=== PATIENT | male | born 1935 | race Caucasian/White ===

== ENCOUNTER 2017-09-26 05:30 | Inpatient (IN) | payer OTHER ==
[~2017-09-26] VITALS: Ht 177.8 cm; Wt 59.0 kg
[~2017-09-26 05:30] MED LIST: LIP40 PO; METO25TA3 PO; REM15 PO; SYN50 PO; TICA90TA PO
[2017-09-26] MEDS ORDERED: ALVIMOPAN 12 MG CAPSULE PO ONE ×2 (05:52→07:00)
[2017-09-26] MEDS ORDERED: CEFOXITIN 1 GM IV ONE (05:52)
[2017-09-26] MEDS ORDERED: cefOXitin SODIUM 2 GM in D5W 100 ML IV ONE (07:00)
[2017-09-26] MEDS ORDERED: LR 1,000 ML IV.SOLN IV ONE (07:15)
[2017-09-26] MEDS ORDERED: fentaNYL CITRATE 250 MCG/5 ML AMP IV ONE (07:15)
[2017-09-26] MEDS ORDERED: GLYCOPYRROLATE 0.2 MG/ML VIAL IJ ONE (07:15)
[2017-09-26] MEDS ORDERED: NS 1000 ML IV.SOLN IV ONE (07:15)
[2017-09-26] MEDS ORDERED: MIDAZOLAM HCL 5 MG/5 ML VIAL IVP ONE (07:15)
[2017-09-26] MEDS ORDERED: BUPIVACAINE LIPOSOME/PF 266 MG/20 ML VIAL INFIL ONE (07:15)
[2017-09-26] MEDS ORDERED: ONDANSETRON HCL 4 MG/2 ML VIAL IVP ONE (07:15)
[2017-09-26] MEDS ORDERED: KETOROLAC TROMETHAMINE 30 MG VIAL IVP ONE (07:15)
[2017-09-26] MEDS ORDERED: cefOXitin SODIUM 2 GM/VIAL (MEFOXIN) IV ONE (07:15)
[2017-09-26] MEDS ORDERED: SEVOFLURANE 15 MIN GAS INH ONE (07:15)
[2017-09-26] MEDS ORDERED: NEOSTIGMINE METHYLSULFATE 1 MG/ML, 10 ML VIAL IVP ONE (07:15)
[2017-09-26] MEDS ORDERED: ePHEDrine sulfate 50 MG/ML VIAL IVP ONE (07:15)
[2017-09-26] MEDS ORDERED: NS IRRIG SOLN 1000 ML IR ONE (07:15)
[2017-09-26] MEDS ORDERED: DEXAMETHASONE SOD PHOSPHATE 4 MG/ML VIAL IVP ONE (07:15)
[2017-09-26] MEDS ORDERED: PROPOFOL 200MG/ 20ML VIAL (DIPRIVAN) IV ONE (07:15)
[2017-09-26] MEDS ORDERED: fentaNYL CITRATE/PF 100 MCG/2 ML AMP IVP ONE (07:15)
[2017-09-26] MEDS ORDERED: ROCURONIUM BROMIDE 10 MG/ML (ZEMURON) IV ONE (07:15)
[2017-09-26] MEDS ORDERED: NS 100 ML BAG IV ONE (07:15)
[2017-09-26] MEDS ORDERED: LR 1,000 ML IV SCH (09:34)
[2017-09-26] MEDS ORDERED: MEPERIDINE HCL/PF 25 MG/ML DISP.SYRIN IVP PRN (09:45)
[2017-09-26] MEDS ORDERED: HYDROmorphone 1 MG INJ. 1 MG/ML AMPUL IVP PRN ×2 (09:45→11:00)
[2017-09-26] MEDS ORDERED: HYDROmorphone 2 MG/ML VIAL IVP PRN ×2 (09:45)
[2017-09-26] MEDS: D5/0.45 NS 1,000 ML IV SCH ×2 (10:50→21:17)
[2017-09-26] MEDS ORDERED: ACETAMINOPHEN 325 MG TABLET PO PRN (11:00)
[2017-09-26] MEDS ORDERED: ONDANSETRON HCL 4 MG/2 ML VIAL IVP PRN (11:00)
[2017-09-26] MEDS ORDERED: metroNIDAZOLE 500 mg/NS 100 ML IV SCH (11:00)
[2017-09-26 11:23] LABS: ANION GAP 7 (5-15); CALCIUM 7.6 mg/dL (8.4-11.0); CHLORIDE 107 mmol/L (98-107); GLUCOSE 147 mg/dL (70-99); POTASSIUM 4.5 mmol/L (3.5-5.1); SODIUM SERUM 137 mmol/L (136-145); UREA NITROGEN, BLOOD 16 mg/dL (8-21)
[2017-09-26 11:30] LABS: HEMATOCRIT 29.1 % (36-54); HEMOGLOBIN 9.6 g/dL (14.0-18.0)
[2017-09-26 12:00] VITALS: BP_SYST 123
[2017-09-26 12:36] VITALS: BP_SYST 124
[2017-09-26 15:36] VITALS: BP_SYST 125
[2017-09-26 20:00] VITALS: BP_SYST 115
[2017-09-26] MEDS: ALVIMOPAN 12 MG CAPSULE PO SCH (21:13)
[2017-09-26] MEDS: FAMOTIDINE PF 20 MG/2 ML VIAL IVP SCH (21:13)
[2017-09-26] MEDS: cefOXitin SODIUM 2 GM in D5W 100 ML IV SCH (21:13)
[2017-09-27 00:23] VITALS: BP_SYST 103
[2017-09-27] MEDS: HYDROcodone/ACETAMIN 5-325 MG TAB (NORCO/ VICODIN) PO PRN ×3 (03:33→17:02)
[2017-09-27] MEDS: D5/0.45 NS 1,000 ML IV SCH ×2 (04:50→17:02)
[2017-09-27 06:51] LABS: BASOPHILS % (AUTO) 0.2 % (0.0-2.0); EOSINOPHILS # (AUTO) 0.1 K/uL (0.0-0.4); EOSINOPHILS % (AUTO) 0.4 % (0.0-4.0); HEMATOCRIT 28.3 % (36-54); HEMOGLOBIN 9.4 g/dL (14.0-18.0); LYMPHOCYTES # (AUTO) 1.6 K/uL (1.0-5.5); LYMPHOCYTES % (AUTO) 12.1 % (20.5-51.5); MEAN CORPUSCULAR HEMOGLOBIN 30 pg (27-31); MEAN CORPUSCULAR HGB CONC 33 % (32-36); MEAN CORPUSCULAR VOLUME 89 fL (79.0-98.0); MONOCYTES # (AUTO) 0.6 K/uL (0.0-1.0); MONOCYTES % (AUTO) 4.5 % (1.7-9.3); NEUTROPHILS # (AUTO) 10.6 K/uL (1.8-7.7); NEUTROPHILS % (AUTO) 82.8 % (40.0-70.0); PLATELET COUNT (AUTO) 302 K/uL (130-430); RED BLOOD CELL COUNT(AUTO) 3.18 MIL/uL (4.2-6.2); RED CELL DISTRIBUTION WIDTH 15.1 % (9.0-15.0); WHITE BLOOD COUNT (AUTO) 12.9 K/uL (4.8-10.8)
[2017-09-27 06:55] LABS: ALANINE AMINOTRANSFERASE 16 U/L (12-78); ALBUMIN 1.6 g/dL (3.4-4.8); ANION GAP 7 (5-15); ASPARTATE AMINOTRANSFERASE 19 U/L (10-37); CALCIUM 7.7 mg/dL (8.4-11.0); CHLORIDE 104 mmol/L (98-107); CREATININE 1.35 mg/dL (0.55-1.30); GLUCOSE 144 mg/dL (70-99); POTASSIUM 4.3 mmol/L (3.5-5.1); SODIUM SERUM 134 mmol/L (136-145); TOTAL BILIRUBIN 0.4 mg/dL (0.0-1.0); UREA NITROGEN, BLOOD 16 mg/dL (8-21)
[2017-09-27] MEDS: cefOXitin SODIUM 2 GM in D5W 100 ML IV SCH ×3 (08:37→20:27)
[2017-09-27] MEDS: ALVIMOPAN 12 MG CAPSULE PO SCH ×2 (08:38→20:28)
[2017-09-27] MEDS: FAMOTIDINE PF 20 MG/2 ML VIAL IVP SCH ×2 (08:38→20:28)
[2017-09-27 08:50] VITALS: BP_SYST 120
[2017-09-27] MEDS ORDERED: ENOXAPARIN SODIUM 30 MG/0.3 ML SYRINGE SUBCUT SCH (09:00)
[2017-09-27 11:17] VITALS: BP_SYST 107
[2017-09-27 15:03] VITALS: BP_SYST 129
[2017-09-27] MEDS: METOCLOPRAMIDE HCL 10 MG/2 ML VIAL IVP SCH (17:03)
[2017-09-27 19:45] VITALS: BP_SYST 110
[2017-09-27] MEDS: ATORVASTATIN 20 MG TABLET PO SCH (20:28)
[2017-09-28] MEDS: METOCLOPRAMIDE HCL 10 MG/2 ML VIAL IVP SCH ×5 (00:17→23:25)
[2017-09-28 00:32] VITALS: BP_SYST 110
[2017-09-28] MEDS: HYDROcodone/ACETAMIN 5-325 MG TAB (NORCO/ VICODIN) PO PRN ×3 (01:21→16:28)
[2017-09-28] MEDS: D5/0.45 NS 1,000 ML IV SCH ×2 (02:50→12:25)
[2017-09-28] MEDS: LEVOTHYROXINE SODIUM 0.05 MG TABLET PO SCH (06:16)
[2017-09-28 08:00] VITALS: BP_SYST 107
[2017-09-28] MEDS: cefOXitin SODIUM 2 GM in D5W 100 ML IV SCH ×2 (08:33→21:43)
[2017-09-28] MEDS: FAMOTIDINE PF 20 MG/2 ML VIAL IVP SCH ×2 (08:33→21:42)
[2017-09-28] MEDS: ALVIMOPAN 12 MG CAPSULE PO SCH ×2 (08:34→21:42)
[2017-09-28] MEDS: METOPROLOL SUCCINATE 25 MG TAB.SR.24H (TOPROL XL) PO SCH ×2 (08:34→21:00)
[2017-09-28] MEDS: MIRTAZAPINE 15 MG TABLET PO SCH (08:34)
[2017-09-28] MEDS: BRILINTA 90 MG PO SCH ×2 (08:43→21:00)
[2017-09-28 12:10] VITALS: BP_SYST 135
[2017-09-28 16:15] VITALS: BP_SYST 130
[2017-09-28 20:06] VITALS: BP_SYST 126
[2017-09-28 20:12] VITALS: BP_SYST 126
[2017-09-28] MEDS: ATORVASTATIN 20 MG TABLET PO SCH (21:42)
[2017-09-29] VITALS (7 sets, daily range): BP systolic 122–144
[2017-09-29] MEDS: METOCLOPRAMIDE HCL 10 MG/2 ML VIAL IVP SCH ×4 (05:59→23:34)
[2017-09-29] MEDS: LEVOTHYROXINE SODIUM 0.05 MG TABLET PO SCH (05:59)
[2017-09-29] MEDS: HYDROcodone/ACETAMIN 5-325 MG TAB (NORCO/ VICODIN) PO PRN ×3 (05:59→22:09)
[2017-09-29] MEDS: D5/0.45 NS 1,000 ML IV SCH (06:02)
[2017-09-29 06:07] LABS: ALANINE AMINOTRANSFERASE 20 U/L (12-78); ALBUMIN 1.5 g/dL (3.4-4.8); ANION GAP 7 (5-15); ASPARTATE AMINOTRANSFERASE 25 U/L (10-37); CALCIUM 7.6 mg/dL (8.4-11.0); CHLORIDE 102 mmol/L (98-107); CREATININE 1.06 mg/dL (0.55-1.30); GLUCOSE 122 mg/dL (70-99); POTASSIUM 3.4 mmol/L (3.5-5.1); SODIUM SERUM 131 mmol/L (136-145); TOTAL BILIRUBIN 0.4 mg/dL (0.0-1.0); UREA NITROGEN, BLOOD 5 mg/dL (8-21)
[2017-09-29 06:09] LABS: BASOPHILS % (AUTO) 0.2 % (0.0-2.0); EOSINOPHILS # (AUTO) 0.2 K/uL (0.0-0.4); EOSINOPHILS % (AUTO) 1.7 % (0.0-4.0); HEMATOCRIT 27.9 % (36-54); HEMOGLOBIN 9.4 g/dL (14.0-18.0); LYMPHOCYTES # (AUTO) 1.3 K/uL (1.0-5.5); LYMPHOCYTES % (AUTO) 9.3 % (20.5-51.5); MEAN CORPUSCULAR HEMOGLOBIN 30 pg (27-31); MEAN CORPUSCULAR HGB CONC 34 % (32-36); MEAN CORPUSCULAR VOLUME 88 fL (79.0-98.0); MONOCYTES # (AUTO) 0.6 K/uL (0.0-1.0); MONOCYTES % (AUTO) 4.4 % (1.7-9.3); NEUTROPHILS # (AUTO) 12.1 K/uL (1.8-7.7); NEUTROPHILS % (AUTO) 84.4 % (40.0-70.0); PLATELET COUNT (AUTO) 303 K/uL (130-430); RED BLOOD CELL COUNT(AUTO) 3.16 MIL/uL (4.2-6.2); RED CELL DISTRIBUTION WIDTH 15.3 % (9.0-15.0); WHITE BLOOD COUNT (AUTO) 14.2 K/uL (4.8-10.8)
[2017-09-29] MEDS: KCL 30mEq in D5/0.45NS 1000 mL 1,000 ML IV SCH ×2 (08:29→17:51)
[2017-09-29] MEDS: ALVIMOPAN 12 MG CAPSULE PO SCH ×2 (08:30→21:44)
[2017-09-29] MEDS: FAMOTIDINE PF 20 MG/2 ML VIAL IVP SCH ×2 (08:30→21:45)
[2017-09-29] MEDS: cefOXitin SODIUM 2 GM in D5W 100 ML IV SCH ×2 (08:30→21:43)
[2017-09-29] MEDS: PARoxetine HCL 20 MG TABLET PO SCH (08:31)
[2017-09-29] MEDS: METOPROLOL SUCCINATE 25 MG TAB.SR.24H (TOPROL XL) PO SCH ×2 (08:31→21:44)
[2017-09-29] MEDS: MIRTAZAPINE 15 MG TABLET PO SCH (08:31)
[2017-09-29] MEDS: BRILINTA 90 MG PO SCH ×2 (08:44→21:00)
[2017-09-29] MEDS: ATORVASTATIN 20 MG TABLET PO SCH (21:44)
[2017-09-30] MEDS: KCL 30mEq in D5/0.45NS 1000 mL 1,000 ML IV SCH ×2 (06:01→15:45)
[2017-09-30] MEDS: METOCLOPRAMIDE HCL 10 MG/2 ML VIAL IVP SCH ×3 (06:01→17:46)
[2017-09-30] MEDS: LEVOTHYROXINE SODIUM 0.05 MG TABLET PO SCH (06:01)
[2017-09-30 07:04] LABS: ANION GAP 4 (5-15); CALCIUM 7.8 mg/dL (8.4-11.0); CHLORIDE 104 mmol/L (98-107); GLUCOSE 125 mg/dL (70-99); POTASSIUM 3.8 mmol/L (3.5-5.1); SODIUM SERUM 133 mmol/L (136-145); UREA NITROGEN, BLOOD 4 mg/dL (8-21)
[2017-09-30 07:17] LABS: ALANINE AMINOTRANSFERASE 21 U/L (12-78); ALBUMIN 1.3 g/dL (3.4-4.8); ASPARTATE AMINOTRANSFERASE 28 U/L (10-37); TOTAL BILIRUBIN 0.3 mg/dL (0.0-1.0)
[2017-09-30 08:00] VITALS: BP_SYST 136
[2017-09-30] MEDS: BRILINTA 90 MG PO SCH ×2 (09:00→21:00)
[2017-09-30] MEDS: cefOXitin SODIUM 2 GM in D5W 100 ML IV SCH ×2 (09:15→21:36)
[2017-09-30] MEDS: ALVIMOPAN 12 MG CAPSULE PO SCH ×2 (09:16→21:35)
[2017-09-30] MEDS: METOPROLOL SUCCINATE 25 MG TAB.SR.24H (TOPROL XL) PO SCH ×2 (09:16→21:36)
[2017-09-30] MEDS: PARoxetine HCL 20 MG TABLET PO SCH (09:16)
[2017-09-30] MEDS: MIRTAZAPINE 15 MG TABLET PO SCH (09:16)
[2017-09-30] MEDS: FAMOTIDINE PF 20 MG/2 ML VIAL IVP SCH ×2 (09:17→21:36)
[2017-09-30 12:00] VITALS: BP_SYST 132
[2017-09-30 16:00] VITALS: BP_SYST 158
[2017-09-30 18:28] LABS: WHITE BLOOD COUNT (AUTO) 12.4 K/uL (4.8-10.8)
[2017-09-30 18:29] LABS: HEMATOCRIT 27.1 % (36-54); HEMOGLOBIN 9.4 g/dL (14.0-18.0); MEAN CORPUSCULAR HEMOGLOBIN 30 pg (27-31); MEAN CORPUSCULAR HGB CONC 35 % (32-36); MEAN CORPUSCULAR VOLUME 86 fL (79.0-98.0); NEUTROPHILS % (AUTO) 81.3 % (40.0-70.0); PLATELET COUNT (AUTO) 307 K/uL (130-430); RED BLOOD CELL COUNT(AUTO) 3.17 MIL/uL (4.2-6.2); RED CELL DISTRIBUTION WIDTH 15.6 % (9.0-15.0)
[2017-09-30 18:30] LABS: BASOPHILS % (AUTO) 0.3 % (0.0-2.0); EOSINOPHILS # (AUTO) 0.5 K/uL (0.0-0.4); EOSINOPHILS % (AUTO) 4.2 % (0.0-4.0); LYMPHOCYTES % (AUTO) 7.9 % (20.5-51.5); MONOCYTES # (AUTO) 0.8 K/uL (0.0-1.0); MONOCYTES % (AUTO) 6.3 % (1.7-9.3); NEUTROPHILS # (AUTO) 10.1 K/uL (1.8-7.7)
[2017-09-30] MEDS ORDERED: DEXTROSE 50% JECT 50 ML DISP.SYRIN IVP PRN (19:45)
[2017-09-30] MEDS ORDERED: *TPN PER PHARMACY XX PRN (19:45)
[2017-09-30 20:00] VITALS: BP_SYST 149
[2017-09-30 20:23] LABS: PROTHROMBIN TIME 10.2 SECS (9.5-12.5)
[2017-09-30] MEDS: ATORVASTATIN 20 MG TABLET PO SCH (21:35)
[2017-09-30 23:28] VITALS: BP_SYST 143
[2017-10-01] MEDS: METOCLOPRAMIDE HCL 10 MG/2 ML VIAL IVP SCH ×4 (00:05→17:16)
[2017-10-01] MEDS: KCL 30mEq in D5/0.45NS 1000 mL 1,000 ML IV SCH ×3 (00:05→21:11)
[2017-10-01] MEDS: LEVOTHYROXINE SODIUM 0.05 MG TABLET PO SCH (06:11)
[2017-10-01 06:45] LABS: BASOPHILS % (AUTO) 0.2 % (0.0-2.0); EOSINOPHILS # (AUTO) 0.7 K/uL (0.0-0.4); EOSINOPHILS % (AUTO) 4.7 % (0.0-4.0); HEMATOCRIT 28.2 % (36-54); HEMOGLOBIN 9.4 g/dL (14.0-18.0); LYMPHOCYTES # (AUTO) 1.2 K/uL (1.0-5.5); LYMPHOCYTES % (AUTO) 8.2 % (20.5-51.5); MEAN CORPUSCULAR HEMOGLOBIN 30 pg (27-31); MEAN CORPUSCULAR HGB CONC 33 % (32-36); MEAN CORPUSCULAR VOLUME 89 fL (79.0-98.0); MONOCYTES # (AUTO) 1.1 K/uL (0.0-1.0); MONOCYTES % (AUTO) 7.7 % (1.7-9.3); NEUTROPHILS # (AUTO) 11.3 K/uL (1.8-7.7); NEUTROPHILS % (AUTO) 79.2 % (40.0-70.0); PLATELET COUNT (AUTO) 326 K/uL (130-430); RED BLOOD CELL COUNT(AUTO) 3.17 MIL/uL (4.2-6.2); RED CELL DISTRIBUTION WIDTH 15.4 % (9.0-15.0); WHITE BLOOD COUNT (AUTO) 14.3 K/uL (4.8-10.8)
[2017-10-01 06:48] LABS: ALANINE AMINOTRANSFERASE 51 U/L (12-78); ALBUMIN 1.3 g/dL (3.4-4.8); ANION GAP 5 (5-15); ASPARTATE AMINOTRANSFERASE 63 U/L (10-37); CALCIUM 7.8 mg/dL (8.4-11.0); CHLORIDE 100 mmol/L (98-107); CREATININE 0.89 mg/dL (0.55-1.30); GLUCOSE 134 mg/dL (70-99); POTASSIUM 4.4 mmol/L (3.5-5.1); SODIUM SERUM 129 mmol/L (136-145); TOTAL BILIRUBIN 0.4 mg/dL (0.0-1.0); UREA NITROGEN, BLOOD 4 mg/dL (8-21)
[2017-10-01 08:00] VITALS: BP_SYST 152
[2017-10-01 08:11] LABS: PHOSPHORUS 2.5 mg/dL (2.7-4.5)
[2017-10-01] MEDS: BRILINTA 90 MG PO SCH ×2 (09:00→21:00)
[2017-10-01] MEDS: ALVIMOPAN 12 MG CAPSULE PO SCH ×2 (09:27→21:12)
[2017-10-01] MEDS: PARoxetine HCL 20 MG TABLET PO SCH (09:27)
[2017-10-01] MEDS: MIRTAZAPINE 15 MG TABLET PO SCH (09:27)
[2017-10-01] MEDS: FAMOTIDINE PF 20 MG/2 ML VIAL IVP SCH ×2 (09:27→21:12)
[2017-10-01] MEDS: METOPROLOL SUCCINATE 25 MG TAB.SR.24H (TOPROL XL) PO SCH ×2 (09:28→21:13)
[2017-10-01] MEDS ORDERED: ACET325T53 PO (09:38)
[2017-10-01] MEDS ORDERED: PEPI20 IVP (09:38)
[2017-10-01] MEDS ORDERED: ONDA4VIA53 IVP (09:38)
[2017-10-01] MEDS: cefOXitin SODIUM 2 GM in D5W 100 ML IV SCH ×2 (10:01→21:12)
[2017-10-01 11:25] VITALS: BP_SYST 147
[2017-10-01 15:13] VITALS: BP_SYST 135
[2017-10-01] MEDS: FAT EMULSIONS 250 ML IV SCH (17:21)
[2017-10-01] MEDS ORDERED: [UNRECOGNIZED DRUG - OTHER] IV SCH ×9 (18:00)
[2017-10-01] MEDS ORDERED: TPN PERIPHERAL IV SCH ×9 (18:00)
[2017-10-01] MEDS ORDERED: POTASSIUM CHLORIDE IV SCH ×9 (18:00)
[2017-10-01] MEDS ORDERED: SODIUM ACETATE IV SCH ×9 (18:00)
[2017-10-01 20:00] VITALS: BP_SYST 152
[2017-10-01] MEDS: ATORVASTATIN 20 MG TABLET PO SCH (21:12)
[2017-10-02] MEDS: METOCLOPRAMIDE HCL 10 MG/2 ML VIAL IVP SCH ×4 (00:16→17:04)
[2017-10-02 00:43] VITALS: BP_SYST 142
[2017-10-02] MEDS: KCL 30mEq in D5/0.45NS 1000 mL 1,000 ML IV SCH ×3 (06:00→17:00)
[2017-10-02] MEDS: LEVOTHYROXINE SODIUM 0.05 MG TABLET PO SCH (06:32)
[2017-10-02 08:00] VITALS: BP_SYST 121
[2017-10-02] MEDS: BRILINTA 90 MG PO SCH ×2 (09:00→21:00)
[2017-10-02] MEDS: MIRTAZAPINE 15 MG TABLET PO SCH (09:28)
[2017-10-02] MEDS: PARoxetine HCL 20 MG TABLET PO SCH (09:28)
[2017-10-02] MEDS: METOPROLOL SUCCINATE 25 MG TAB.SR.24H (TOPROL XL) PO SCH ×2 (09:28→21:43)
[2017-10-02] MEDS: FAMOTIDINE PF 20 MG/2 ML VIAL IVP SCH ×2 (09:29→21:43)
[2017-10-02] MEDS: ALVIMOPAN 12 MG CAPSULE PO SCH ×2 (09:29→21:44)
[2017-10-02] MEDS: cefOXitin SODIUM 2 GM in D5W 100 ML IV SCH ×2 (09:29→21:42)
[2017-10-02 11:22] VITALS: BP_SYST 153
[2017-10-02 14:57] VITALS: BP_SYST 153
[2017-10-02 15:19] VITALS: BP_SYST 134
[2017-10-02] MEDS: FAT EMULSIONS 250 ML IV SCH (17:13)
[2017-10-02] MEDS ORDERED: TPN CENTRAL IV SCH ×9 (18:00)
[2017-10-02] MEDS ORDERED: [UNRECOGNIZED DRUG - OTHER] IV SCH ×9 (18:00)
[2017-10-02] MEDS ORDERED: SODIUM ACETATE IV SCH ×9 (18:00)
[2017-10-02] MEDS ORDERED: POTASSIUM CHLORIDE IV SCH ×9 (18:00)
[2017-10-02] MEDS ORDERED: INSULIN REGULAR, HUMAN 100 UNITS/ML, 10 ML VIAL (novoLIN R) SUBCUT PRN (18:15)
[2017-10-02 20:37] VITALS: BP_SYST 131
[2017-10-02] MEDS: ATORVASTATIN 20 MG TABLET PO SCH (21:44)
[2017-10-03 01:00] VITALS: BP_SYST 138
[2017-10-03] MEDS: METOCLOPRAMIDE HCL 10 MG/2 ML VIAL IVP SCH ×3 (06:21→11:28)
[2017-10-03] MEDS: LEVOTHYROXINE SODIUM 0.05 MG TABLET PO SCH (06:21)
[2017-10-03 06:39] LABS: BASOPHILS % (AUTO) 0.2 % (0.0-2.0); EOSINOPHILS # (AUTO) 0.4 K/uL (0.0-0.4); EOSINOPHILS % (AUTO) 4.2 % (0.0-4.0); HEMATOCRIT 27.7 % (36-54); HEMOGLOBIN 8.9 g/dL (14.0-18.0); LYMPHOCYTES # (AUTO) 1.1 K/uL (1.0-5.5); MEAN CORPUSCULAR HEMOGLOBIN 28 pg (27-31); MEAN CORPUSCULAR HGB CONC 32 % (32-36); MEAN CORPUSCULAR VOLUME 88 fL (79.0-98.0); NEUTROPHILS # (AUTO) 8.1 K/uL (1.8-7.7); NEUTROPHILS % (AUTO) 76.6 % (40.0-70.0); PLATELET COUNT (AUTO) 295 K/uL (130-430); RED BLOOD CELL COUNT(AUTO) 3.15 MIL/uL (4.2-6.2); RED CELL DISTRIBUTION WIDTH 14.9 % (9.0-15.0); WHITE BLOOD COUNT (AUTO) 10.6 K/uL (4.8-10.8)
[2017-10-03 07:04] LABS: ALANINE AMINOTRANSFERASE 41 U/L (12-78); ALBUMIN 1.3 g/dL (3.4-4.8); ANION GAP 4 (5-15); ASPARTATE AMINOTRANSFERASE 29 U/L (10-37); CALCIUM 7.8 mg/dL (8.4-11.0); CHLORIDE 98 mmol/L (98-107); CREATININE 0.88 mg/dL (0.55-1.30); GLUCOSE 127 mg/dL (70-99); SODIUM SERUM 129 mmol/L (136-145); TOTAL BILIRUBIN 0.3 mg/dL (0.0-1.0); UREA NITROGEN, BLOOD 5 mg/dL (8-21)
[2017-10-03 07:50] VITALS: BP_SYST 134
[2017-10-03] MEDS: MIRTAZAPINE 15 MG TABLET PO SCH (08:54)
[2017-10-03] MEDS: PARoxetine HCL 20 MG TABLET PO SCH (08:55)
[2017-10-03] MEDS: ALVIMOPAN 12 MG CAPSULE PO SCH (08:55)
[2017-10-03] MEDS: METOPROLOL SUCCINATE 25 MG TAB.SR.24H (TOPROL XL) PO SCH (08:55)
[2017-10-03] MEDS: cefOXitin SODIUM 2 GM in D5W 100 ML IV SCH (08:56)
[2017-10-03] MEDS: BRILINTA 90 MG PO SCH (08:56)
[2017-10-03] MEDS: FAMOTIDINE PF 20 MG/2 ML VIAL IVP SCH (09:02)
[2017-10-03] MEDS ORDERED: risperiDONE 0.25 MG TABLET (RisperDAL) PO ONE (11:15)
[2017-10-03 11:18] VITALS: BP_SYST 138
[2017-10-03] MEDS: KCL 30mEq in D5/0.45NS 1000 mL 1,000 ML IV SCH (12:30)
[2017-10-03 13:08] VITALS: BP_SYST 138
[2017-10-03 15:01] VITALS: BP_SYST 134
[2017-10-03] MEDS ORDERED: NA PHOS IV SCH ×9 (18:00)
[2017-10-03] MEDS ORDERED: [UNRECOGNIZED DRUG - OTHER] IV SCH ×9 (18:00)
[2017-10-03] MEDS ORDERED: TPN CENTRAL IV SCH ×9 (18:00)
[2017-10-03] MEDS ORDERED: SODIUM ACETATE IV SCH ×9 (18:00)
[2017-10-03] MEDS ORDERED: POTASSIUM CHLORIDE IV SCH ×9 (18:00)
[2017-10-03] MEDS ORDERED: risperiDONE 0.25 MG TABLET (RisperDAL) PO SCH (21:00)
== END 2017-10-03 16:20 | DRG 907 ==
LOC: SMU 05:30 → STU 12:06 → SMU 09-28 21:31
PROVIDERS: ADMIT Colon & Rectal Surgery; ATTEND Colon & Rectal Surgery
PROC: 0D1N0Z4 Bypass Sigmoid Colon to Cutaneous, Open Approach (ICD-10-PCS; 2017-09-26)
PROC: 30233N1 Transfusion of Nonautologous Red Blood Cells into Peripheral Vein, Percutaneous Approach (ICD-10-PCS; 2017-09-26)
PROC: 0DB80ZZ Excision of Small Intestine, Open Approach (ICD-10-PCS; 2017-09-26)
PROC: 0WPF0JZ Removal of Synthetic Substitute from Abdominal Wall, Open Approach (ICD-10-PCS; 2017-09-26)
PROC: 0DBN0ZZ Excision of Sigmoid Colon, Open Approach (ICD-10-PCS; principal; 2017-09-26 07:30)
DX: T85.79XA Infection and inflammatory reaction due to other internal prosthetic devices, implants and grafts, initial encounter (principal); K65.1 Peritoneal abscess; K63.1 Perforation of intestine (nontraumatic); T83.718A Erosion of other implanted mesh to organ or tissue, initial encounter; F33.2 Major depressive disorder, recurrent severe without psychotic features; K56.7 Ileus, unspecified; H91.90 Unspecified hearing loss, unspecified ear; R33.9 Retention of urine, unspecified; I10 Essential (primary) hypertension; I25.10 Atherosclerotic heart disease of native coronary artery without angina pectoris; Y83.8 Other surgical procedures as the cause of abnormal reaction of the patient, or of later complication, without mention of misadventure at the time of the procedure; Y92.89 Other specified places as the place of occurrence of the external cause; Z98.61 Coronary angioplasty status
CPT/HCPCS: 36415; 71045; 80048; 80053; 82962; 83735-TC; 84100-TC; 84478-TC; 85018-TC; 85025; 85610-TC; 85730-TC; 86886; 86900; 86901; 86920; 87081; 88307; 94010; 97110-GP; 97116-GP; 97530-GP; A4409; A5061; C1751; C1769; C9290; J0694; J1100; J1170; J1650; J1885; J2250; J2405; J2704; J2710; J2765; J3010; J3475; J3480; J3490; J7030; J7042; J7060; J7120; P9021

== ENCOUNTER 2018-08-27 05:55 | Inpatient (IN) | payer OTHER ==
[~2018-08-27] VITALS: Ht 177.8 cm; Wt 78.9 kg
[~2018-08-27 05:55] MED LIST changes: +ACET325T53 PO; +ONDA4VIA52 IVP; +PEPI20 IVP
[2018-08-27] MEDS ORDERED: ALVIMOPAN 12 MG CAPSULE PO ONE ×2 (06:28→07:00)
[2018-08-27] MEDS ORDERED: METO25TA3 PO (06:54)
[2018-08-27] MEDS ORDERED: cefOXitin SODIUM 2 GM in D5W 100 ML IV ONE (07:00)
[2018-08-27] MEDS ORDERED: ROCURONIUM BROMIDE 10 MG/ML (ZEMURON) IV ONE (07:40)
[2018-08-27] MEDS ORDERED: MIDAZOLAM HCL 5 MG/5 ML VIAL IVP ONE (07:40)
[2018-08-27] MEDS ORDERED: cefOXitin 2 GM IVPB PREMIX 50 ML IV ONE (07:40)
[2018-08-27] MEDS ORDERED: PROPOFOL 200MG/ 20ML VIAL (DIPRIVAN) IV ONE (07:40)
[2018-08-27] MEDS ORDERED: SEVOFLURANE 15 MIN GAS INH ONE (07:40)
[2018-08-27] MEDS ORDERED: ePHEDrine sulfate 50 MG/ML VIAL IVP ONE (07:40)
[2018-08-27] MEDS ORDERED: fentaNYL CITRATE/PF 100 MCG/2 ML AMP IVP ONE (07:40)
[2018-08-27] MEDS ORDERED: WATER FOR IRRIGATION,STERILE 1,000 ML IRRIG.SOLN IR ONE (07:40)
[2018-08-27] MEDS ORDERED: LR 1,000 ML IV.SOLN IV ONE (07:40)
[2018-08-27] MEDS ORDERED: GLYCOPYRROLATE 1 MG/5 ML VIAL IJ ONE (07:40)
[2018-08-27] MEDS ORDERED: LR 500 ML IV ONE (08:24)
[2018-08-27] MEDS ORDERED: FENT2mCg/mL-ROPIVA0.2%/NS EPID 100 ML EP SCH (08:30)
[2018-08-27] MEDS ORDERED: fentaNYL CITRATE/PF 100 MCG/2 ML AMP IVP PRN ×2 (08:30)
[2018-08-27] MEDS ORDERED: HYDROmorphone 1 MG INJ. 1 MG/ML AMPUL IVP PRN (13:30)
[2018-08-27] MEDS ORDERED: ACETAMINOPHEN 325 MG TABLET PO PRN (13:30)
--- NOTE | 2018-08-27 14:17 | NUR ---
ADMISSION NOTE Received patient from ER via dean, received report from Manoj RDIER. Patient admitted with diagnosis of post surgery. Patient oriented to hospital routine, call light, toileting and safety-patient verbalized understanding.
[2018-08-27 14:20] VITALS: BP_SYST 130
--- NOTE | 2018-08-27 14:20 | NUR ---
CONSULTATION PAGED REASON FOR CONSULTATION:MEDICAL MANAGEMENT WAS CONSULT CALLED?Y PERSON WHO WAS NOTIFIED:ANH CONSULTING PHYSICIAN:ANGIE PERRY ELECTROTYPE FINISHER SPECIALTY:INTERNAL MEDICINE ELECTROTYPE FINISHER PHONE NUMBER:[phone] REQUESTING PHYSICIAN:JUMANA JIANG
[2018-08-27] MEDS: D5/0.45 NS 1,000 ML IV SCH (14:26)
--- NOTE | 2018-08-27 14:30 | NUR ---
Incentive Spirometer: Patient educated on incentive spirometer use. Patient verbalize understanding and return demonstrated.
[2018-08-27 14:36] VITALS: BP_SYST 130
[2018-08-27 16:03] LABS: HEMATOCRIT 40.7 % (36-54); HEMOGLOBIN 13.2 g/dL (14.0-18.0)
[2018-08-27 16:11] LABS: ANION GAP 11 (5-15); CALCIUM 8.1 mg/dL (8.4-11.0); CHLORIDE 107 mmol/L (98-107); CREATININE 1.47 mg/dL (0.55-1.30); GLUCOSE 169 mg/dL (70-99); POTASSIUM 5.2 mmol/L (3.5-5.1); SODIUM SERUM 139 mmol/L (136-145); UREA NITROGEN, BLOOD 17 mg/dL (8-21)
--- NOTE | 2018-08-27 16:21 | NUR ---
Rounds: Patient in bed resting. Patient denies pain and discomfort. Breathing is even and unlabored with no distress noted. IVF infusing with no signs of infiltration. Safety precautions in place and call light within reach. Will continue to monitor.
[2018-08-27 17:58] VITALS: BP_SYST 130
[2018-08-27 18:10] VITALS: BP_SYST 99
--- NOTE | 2018-08-27 18:49 | NUR ---
Closing Note: Patient in bed resting. Patient denies pain and discomfort. Breathing is even and unlabored on room air, O2 sat 97%. IV patent and intact running IVF per MD orders, no signs of infiltration noted. Newby catheter patent and intact with visible urine output. Epidural site within normal infusing at a rate of 10 ml/hr. SCD's in place. MIRANDA drain patent and intact, emptied and bulb suction maintained. Abdominal dressing intact. Safety precautions in place; bed in lowest position, wheels locked, side rails x3, bed alarm activated and call light within reach. All needs met. Will endorse plan of care to NOC, nurse.
[2018-08-27 19:42] VITALS: BP_SYST 113
--- NOTE | 2018-08-27 19:42 | NUR ---
Opening notes Pt drowsy but easily arousable. VSS, afebrile, O2 sat 95% on room air. 2 large Abd dressing with old dry light pink drainage noted. L. MIRANDA drain to bulb suction noted with bloody drainage. IVF infusing at ordered rate L. wrist 18G no s/s infiltration noted. Epidural drip infusing at 10ml/hr, tegaderm dressing intact. Clive SCDs in place. Newby cath draining to gravity. Call light within reach. Safety measures in place. To monitor.
[2018-08-27] MEDS: FENT2mCg/mL-ROPIVA0.2%/NS EPID 200 ML EP SCH (20:02)
--- NOTE | 2018-08-27 21:30 | NUR ---
Med pass/I.S. use Pt alert, awake. Explained meds/antibiotic indication and possible side effects, pt verb understanding. Encouraged pt to use I.S. 10x while awake, pt demonstrated use 10x up to 1250ml. Tolerated well.
[2018-08-27] MEDS: cefOXitin SODIUM 2 GM in D5W 100 ML IV SCH (21:31)
[2018-08-27] MEDS: ALVIMOPAN 12 MG CAPSULE PO SCH (21:31)
[2018-08-27] MEDS: FAMOTIDINE PF 20 MG/2 ML VIAL IVP SCH (21:31)
[2018-08-28] VITALS (8 sets, daily range): BP systolic 83–136
[2018-08-28] MEDS: D5/0.45 NS 1,000 ML IV SCH ×3 (00:03→20:55)
--- NOTE | 2018-08-28 00:20 | NUR ---
BM Pt incontinent of bm. TRAY LINE WORKER assisted pt with pericare. Call light within reach. To monitor.
--- NOTE | 2018-08-28 02:10 | NUR ---
Rounds Pt asleep. No s/s distress noted. Continuous Epidural drip infusing at 10cc/hr. Clive SCDs on. Call light within reach. To monitor.
--- NOTE | 2018-08-28 04:55 | NUR ---
Rounds Pt awake, alert, VSS. No c/o pain or discomfort. Epidural drip running at 10cc/hr dressing c/d/i. Abd dressing with old dry drainage. MIRANDA on the left emptied 70ml during the shift. Abd binder on. Call light within reach. Safety measures in place. To monitor.
--- NOTE | 2018-08-28 06:35 | NUR ---
Closing notes Pt awake, alert, no s/s distress, VSS. Continuous epidural running at 10ml/hr. Abd binder in place. Pt states he's starting to feel his legs and able to move clive feet. All needs met throughout the night. Clive SCDs on. Call light within reach. Safety measures in place. To endorse to AM nurse.
[2018-08-28 06:44] LABS: ALANINE AMINOTRANSFERASE 25 U/L (12-78); ALBUMIN 2.3 g/dL (3.4-4.8); ANION GAP 7 (5-15); ASPARTATE AMINOTRANSFERASE 23 U/L (10-37); CALCIUM 7.5 mg/dL (8.4-11.0); CHLORIDE 107 mmol/L (98-107); GLUCOSE 133 mg/dL (70-99); SODIUM SERUM 139 mmol/L (136-145); TOTAL BILIRUBIN 0.6 mg/dL (0.0-1.0); UREA NITROGEN, BLOOD 22 mg/dL (8-21)
[2018-08-28 06:49] LABS: BASOPHILS % (AUTO) 0.3 % (0.0-2.0); EOSINOPHILS % (AUTO) 0.1 % (0.0-4.0); HEMATOCRIT 34.3 % (36-54); HEMOGLOBIN 11.6 g/dL (14.0-18.0); LYMPHOCYTES # (AUTO) 2.1 K/uL (1.0-5.5); LYMPHOCYTES % (AUTO) 19.6 % (20.5-51.5); MEAN CORPUSCULAR HEMOGLOBIN 31 pg (27-31); MEAN CORPUSCULAR HGB CONC 34 % (32-36); MEAN CORPUSCULAR VOLUME 92 fL (79.0-98.0); MONOCYTES # (AUTO) 0.9 K/uL (0.0-1.0); MONOCYTES % (AUTO) 8.8 % (1.7-9.3); NEUTROPHILS # (AUTO) 7.5 K/uL (1.8-7.7); NEUTROPHILS % (AUTO) 71.2 % (40.0-70.0); PLATELET COUNT (AUTO) 144 K/uL (130-430); RED BLOOD CELL COUNT(AUTO) 3.75 MIL/uL (4.2-6.2); RED CELL DISTRIBUTION WIDTH 16.4 % (9.0-15.0); WHITE BLOOD COUNT (AUTO) 10.6 K/uL (4.8-10.8)
--- NOTE | 2018-08-28 07:26 | NUR ---
Opening Note: Patient in bed resting. Patient denies pain and discomfort. Breathing is even and unlabored on room air, no distress noted. IV patent and intact running IVF per MD orders, no signs of infiltration noted. Newby catheter patent and intact with visible urine output. Epidural site within normal infusing at a rate of 10 ml/hr. SCD's in place. MIRANDA drain patent and intact, bulb suction maintained. Abdominal dressing intact, abdominal binder in place. Safety precautions in place; bed in lowest position, wheels locked, side rails x3, bed alarm activated and call light within reach. No needs at this time. Will continue to monitor.
[2018-08-28] MEDS: cefOXitin SODIUM 2 GM in D5W 100 ML IV SCH (08:22)
[2018-08-28] MEDS: ALVIMOPAN 12 MG CAPSULE PO SCH ×2 (08:23→20:49)
[2018-08-28] MEDS: FAMOTIDINE PF 20 MG/2 ML VIAL IVP SCH ×2 (08:23→20:49)
[2018-08-28] MEDS: HYDROcodone/ACETAMIN 5-325 MG TAB (NORCO/ VICODIN) PO PRN (08:23)
[2018-08-28] MEDS: ENOXAPARIN SODIUM 30 MG/0.3 ML SYRINGE SUBCUT SCH (08:24)
--- NOTE | 2018-08-28 10:13 | NUR ---
Nutrition Update Phong Scale 18 noted. Pt admitted for encounter for attention to colostomy. Diet: NPO BMI: 25.1 kg/m2 RD to follow per nutrition care standards.
--- NOTE | 2018-08-28 10:25 | NUR ---
Rounds/Temp: Patient has a temp of 100.1, sheets removed and temperature went down to 99.6, cooling measures started, will reassess.
[2018-08-28] MEDS ORDERED: ACETAMINOPHEN 325 MG TABLET PO PRN (10:30)
--- NOTE | 2018-08-28 11:25 | NUR ---
Temperature reassessment: Patient afebrile, temperature 98.7
--- NOTE | 2018-08-28 12:15 | NUR ---
Rounds: Dr. Wells at bedside. Patient seen and assessed,. New orders to be carried out. Patient denies pain and discomfort. Breathing is even and unlabored with no distress noted. Morning medications tolerated well. IVF infusing with no signs of infiltration. Epidural site intact. Safety precautions in place and call light within reach. No needs at this time. Will continue to monitor.
--- NOTE | 2018-08-28 14:05 | NUR ---
Rounds: Patient in bed resting. No distress noted. Will continue to monitor.
--- NOTE | 2018-08-28 16:05 | NUR ---
Rounds: Patient in bed resting. Patient denies pain and discomfort. Breathing is even and unlabored with no distress noted. IVF infusing with no signs of infiltration. Epidural site intact. Safety precautions in place and call light within reach. No needs at this time. Will continue to monitor.
[2018-08-28] MEDS: FENT2mCg/mL-ROPIVA0.2%/NS EPID 200 ML EP SCH (17:01)
--- NOTE | 2018-08-28 18:37 | NUR ---
Closing Note: Patient in bed resting. Patient denies pain and discomfort. Breathing is even and unlabored on room air. IV patent and intact running IVF per MD orders, no signs of infiltration noted. Newby catheter patent and intact with visible urine output. Epidural site within normal infusing at a rate of 10 ml/hr. SCD's in place. MIRANDA drain patent and intact, emptied and bulb suction maintained. Abdominal dressing intact. Abdominal binder in place. Safety precautions in place; bed in lowest position, wheels locked, side rails x3, bed alarm activated and call light within reach. All needs met. Will endorse plan of care to NOC, nurse.
--- NOTE | 2018-08-28 19:15 | NUR ---
Opening notes Received report. Patient resting in bed, watching TV. No signs of distress noted. Breathing even and unlabored. IV patent and intact, infusing fluids. Patient has epidural running. Patient is able to moved legs and toes. Abdominal binder is in place. MIRANDA drain noted with small amount of red drainage noted. Educated patient on incentive spirometer. Patient able to inspire 1000 ml. No needs at this time. call light with the patient. Safety precautions in place.
--- NOTE | 2018-08-28 20:00 | NUR ---
Dr. Loya at bedside assessed and examine patient. No new orders. Informed doctor that tomorrow morning (08/29/18) will be 48 hours since epidural was in place, said he will come back and check on patient.
--- NOTE | 2018-08-28 21:00 | NUR ---
Medications given. Educated the action and side effects of medications. Patient verbalized understanding and tolerated well. No signs of allergic reaction noted. No other needs. call light with the patient. Safety precautions in place.
--- NOTE | 2018-08-28 23:10 | NUR ---
Sleeping No signs of distress noted. Breathing even and unlabored. Call light with the patient. Safety precautions in place.
[2018-08-29 00:31] VITALS: BP_SYST 141
[2018-08-29] MEDS: HYDROcodone/ACETAMIN 5-325 MG TAB (NORCO/ VICODIN) PO PRN ×4 (01:41→22:35)
--- NOTE | 2018-08-29 01:45 | NUR ---
Pain Patient complain of 5/10 pain. PRN pain medication given. Educated the action and side effects of medications. Patient verbalized understanding and tolerated well. No signs of allergic reaction noted. Call light with the patient. Safety precautions in place. Addendum: 08/29/18 at 0458 by Argelia Vines RN Patient was still complaining of pain. 10. PRN pain medication given. VSS. No signs of distress noted. Call light with the patient. Safety precautions in place.
--- NOTE | 2018-08-29 05:30 | NUR ---
BM Patient had small BM. hygiene care provided. Patient still complains of pain. Wants to hold off on medications for right now. Will continue to monitor. Call light with the patient, safety precautions in place.
[2018-08-29 05:58] LABS: BASOPHILS # (AUTO) 0.1 K/uL (0.0-0.2); BASOPHILS % (AUTO) 0.5 % (0.0-2.0); EOSINOPHILS # (AUTO) 0.3 K/uL (0.0-0.4); EOSINOPHILS % (AUTO) 2.4 % (0.0-4.0); HEMATOCRIT 33.4 % (36-54); HEMOGLOBIN 11.2 g/dL (14.0-18.0); LYMPHOCYTES # (AUTO) 1.2 K/uL (1.0-5.5); LYMPHOCYTES % (AUTO) 11.2 % (20.5-51.5); MEAN CORPUSCULAR HEMOGLOBIN 31 pg (27-31); MEAN CORPUSCULAR HGB CONC 34 % (32-36); MEAN CORPUSCULAR VOLUME 91 fL (79.0-98.0); MONOCYTES # (AUTO) 0.8 K/uL (0.0-1.0); MONOCYTES % (AUTO) 7.8 % (1.7-9.3); NEUTROPHILS # (AUTO) 8.4 K/uL (1.8-7.7); NEUTROPHILS % (AUTO) 78.1 % (40.0-70.0); PLATELET COUNT (AUTO) 135 K/uL (130-430); RED BLOOD CELL COUNT(AUTO) 3.68 MIL/uL (4.2-6.2); RED CELL DISTRIBUTION WIDTH 16.5 % (9.0-15.0); WHITE BLOOD COUNT (AUTO) 10.8 K/uL (4.8-10.8)
[2018-08-29] MEDS: D5/0.45 NS 1,000 ML IV SCH ×2 (06:07→16:31)
[2018-08-29] MEDS: LEVOTHYROXINE SODIUM 0.05 MG TABLET PO SCH (06:07)
[2018-08-29 06:46] LABS: ALANINE AMINOTRANSFERASE 24 U/L (12-78); ALBUMIN 2.3 g/dL (3.4-4.8); ANION GAP 6 (5-15); ASPARTATE AMINOTRANSFERASE 34 U/L (10-37); CALCIUM 7.6 mg/dL (8.4-11.0); CHLORIDE 106 mmol/L (98-107); GLUCOSE 131 mg/dL (70-99); SODIUM SERUM 137 mmol/L (136-145); TOTAL BILIRUBIN 0.6 mg/dL (0.0-1.0); UREA NITROGEN, BLOOD 12 mg/dL (8-21)
--- NOTE | 2018-08-29 06:52 | NUR ---
Closing notes Patient resting in bed. no signs of distress noted. Breathing even and unlabored. Pain is tolerable at this time. IV patent and intact, infusing fluids. Epidural in place @ 10 ml/hr. Emptied 20 ml of red drainage from MIRANDA drain. Newby catheter in place. All needs met throughout the shift. Call light with the patient. Safety precautions in place. Will endorse care to day shift RN.
--- NOTE | 2018-08-29 07:29 | NUR ---
AM ROUNDS: PATIENT MOANING DURING ROUNDS. REPORT GIVEN BY NIGHT NURSE TEE.NO ACUTE DISTRESS. CALL LIGHT WITH IN REACH. BED LOCKED AT LOWEST POSITION. BED ALARM ON.SAFETY MEASURES RENDERED. Addendum: 08/29/18 at 0737 by Makayla Ray RN CORRECTED ABOVE NOTES: NOT INTENDED FOR THE ABOVE PATIENT.
--- NOTE | 2018-08-29 07:30 | NUR ---
AM ROUNDS: PATIENT AWAKE DURING ROUNDS. POD#2.MID ABDOMINAL DRESSING WITH OLD BLOOD STAINED,NO ACTIVE BLEEDING NOTED. WITH ABDOMINAL BINDER OVER IT.LEFT MIRANDA DRAIN TO REDDISH COLOR.FENTANYL DRIP AT 10CC/H INTACT. IVF ON RUNNING WELL. NPO EXCEPT ICE CHIPS AND MEDS.SCD'S ON LE. CONTINUE TO MONITOR.
[2018-08-29 08:30] VITALS: BP_SYST 148
--- NOTE | 2018-08-29 08:35 | NUR ---
INCENTIVE SPIROMETRY: PATIENT DID IS UP TO 1000ML AND UNDERSTANDS THE TEACHINGS.
--- NOTE | 2018-08-29 09:11 | NUR ---
Epidural dc: Dr Loya came and dc epidural drip,black tip of tube out, band aid was placed,no bleeding noted.No untoward manifestations noted.
[2018-08-29] MEDS: ATORVASTATIN 20 MG TABLET PO SCH (09:34)
[2018-08-29] MEDS: ALVIMOPAN 12 MG CAPSULE PO SCH ×2 (09:34→20:18)
[2018-08-29] MEDS: FAMOTIDINE PF 20 MG/2 ML VIAL IVP SCH ×2 (09:34→20:18)
[2018-08-29] MEDS: METOPROLOL SUCCINATE 25 MG TAB.SR.24H (TOPROL XL) PO SCH (09:38)
[2018-08-29] MEDS: ENOXAPARIN SODIUM 30 MG/0.3 ML SYRINGE SUBCUT SCH (09:45)
--- NOTE | 2018-08-29 10:25 | NUR ---
NEURO CHECK: NEURO ZAMAN WITH NORMAL LIMIT. STABLE.
[2018-08-29] MEDS ORDERED: CEFEPIME 1 GM in D5W 50 ML IV ONE (11:45)
--- NOTE | 2018-08-29 12:00 | NUR ---
RN ROUNDS: NPO MAINTAINED EXCEPT MEDS AND ICE CHIPS ORDERED.NO ACUTE DISTRESS.
[2018-08-29 13:26] VITALS: BP_SYST 157
--- NOTE | 2018-08-29 14:45 | NUR ---
RN ROUNDS: WITH VISITOR AT THE BEDSIDE. PAIN CONTROLLED WHEN PATIENT ON BED REST. MID ABDOMEN DRESSING DRY. LEFT QUADRANT MIRANDA DRAIN INTACT.CALL LIGHT WITH IN REACH. BED LOCKED AT LOWEST POSITION.STABLE.
--- NOTE | 2018-08-29 15:00 | NUR ---
INCENTIVE SPIROMETRY: PATIENT RENDERED INCENTIVE SPIROMETRY UP TO 1500ML WHILE AWAKE EVERY HOUR 8-10X,TEACHINGS GIVEN AND UNDERSTAND IT.
[2018-08-29 16:30] VITALS: BP_SYST 149
--- NOTE | 2018-08-29 16:46 | NUR ---
RN ROUNDS: AWAKE DURING ROUNDS. DENIES ANY PAIN. NO ACUTE DISTRESS.
--- NOTE | 2018-08-29 17:30 | NUR ---
HATCH CONTINUE: SPOKE WITH DR Jayla COLE AND VERIFIED ORDERS FOR HATCH POD#2,KEEP HATCH AND TO SEE PATIENT IN AM.
--- NOTE | 2018-08-29 17:39 | NUR ---
AEROBIC CULTURE FINAL REPORT: SPOKE WITH DR PULIDO AND INFORMED E.COLI IN AEROBIC CULTURE,CONTINUE CEFEPIME IV AND HE WILL SEE PATIENT IN AM.
[2018-08-29] MEDS: ONDANSETRON HCL 4 MG/2 ML VIAL IVP PRN (17:58)
--- NOTE | 2018-08-29 17:58 | NUR ---
NAUSEA/PAIN: C/O POST OP PAIN AND NAUSEA,DUE PO NORCO GIVEN AND IV ZOFRAN WELL.NO ADVERSE REACTIONS NOTED.
--- NOTE | 2018-08-29 18:00 | NUR ---
DC TELE: DOWNGRADE PATIENT TO MEDICAL SURGICAL ORDERED.
--- NOTE | 2018-08-29 18:32 | NUR ---
END OF SHIFT: DC TELE,DOWNGRADED PATIENT TO MEDICAL SURGICAL UNIT.NEURO ZAMAN WITH IN NORMAL LIMIT. CALL LIGHT WITH IN REACH. BED LOCKED AT LOWEST POSITION. BED ALARM ON. SCD,OFF PER PATIENT'S REQUEST. ABDOMINAL DRESSING ,OLD STAINED ,DRY.LEFT MIRANDA DRAIN INTACT. CONDITION GUARDED.
--- NOTE | 2018-08-29 19:20 | NUR ---
Initial Note Received patient awake, alert and oriented with visitor at the bedside. No SOB noted. Denies any n/v at this time. Complain of mild abdominal pain and was medicated more than an hour ago. Comfort measures provided. Encouraged to use IS. Able to pass gas and burp. No BM yet. Abdominal dressing CDI with abdominal binder in place. MIRANDA drain site CDI with minimal serosanguinous drainage. Bulb suction maitained. IVF infusing. SCDs. VS stable. NPO except for meds, sips of water and ice chips. F/C intact and draining well with yellow colored urine. Needs attended. Call light within reach. Bed alarm on and at lowest position at all times. Care and monitoring will be provided per protocol. Needs attended. Kept warm and comfortable.
[2018-08-29 20:00] VITALS: BP_SYST 156
[2018-08-29] MEDS: CEFEPIME 1 GM in D5W 50 ML IV SCH (20:15)
--- NOTE | 2018-08-29 20:15 | NUR ---
RN Note Due meds given, tolerated well. Educated on new IV medication will be given. New IV line placed on right wrist G22, resumed IVF. Previous line was leaking. Patient said that pain medication is working at this time. Made him aware the next time he can get his pain medication. Needs attended.
[2018-08-29] MEDS: metroNIDAZOLE 500 mg/NS 100 ML IV SCH (20:56)
--- NOTE | 2018-08-29 22:00 | NUR ---
RN Note Patient sleeping at this time. No SOB or grimacing noted. IVF infusing.
--- NOTE | 2018-08-29 22:35 | NUR ---
Pain med Medicated for moderate abdominal pain per patient's request. Comfort measures provided. Assist in repositioning. Will continue to monitor.
--- NOTE | 2018-08-30 | NUR ---
RN Note Patient asleep, moves occasionally. No distress noted.
[2018-08-30 00:16] VITALS: BP_SYST 156
[2018-08-30] MEDS: D5/0.45 NS 1,000 ML IV SCH ×3 (02:20→22:34)
--- NOTE | 2018-08-30 02:20 | NUR ---
Pain med Medicated for abdominal pain per patient's request. Repositioned to his side. Kept warm and comfortable. Will continue to monitor.
[2018-08-30] MEDS: HYDROcodone/ACETAMIN 5-325 MG TAB (NORCO/ VICODIN) PO PRN ×2 (02:21→23:31)
--- NOTE | 2018-08-30 03:30 | NUR ---
RN Note Sleeping comfortably on his side. No distress noted. IVF infusing.
[2018-08-30 04:00] VITALS: BP_SYST 148
--- NOTE | 2018-08-30 04:55 | NUR ---
RN Note Patient arousable. Repositioned on his right side with a support pillow. Used incentive spirometer at 700 ml. Encouraged to use more often. Abdominal dressing ad binder in place and no bleeding noted. Emptied about 50ml of serous drainage from MIRANDA drain. Maintained bulb suction. SCDs. Kept warm and comfortable.
[2018-08-30] MEDS: LEVOTHYROXINE SODIUM 0.05 MG TABLET PO SCH (05:56)
--- NOTE | 2018-08-30 06:31 | NUR ---
End Note Afebrile. VS stable. Latest BP was 148/75 and HR of 72. Denies any SOB or n/v throughout the night. Medicated for moderate abdominal pain twice all night. NPO except meds, ice chips and sips of water, tolerating water. Assist in repositioning every 2 hrs. Abdominal dressing CDI and abdominal binder in place. Emptied 50 ml of serous fluid and maintained bulb suction. IVF infusing. Patient is requesting if he can eat today-will endorse. SCDs. Needs attended. Call light within reach. Bed at lowest position at all times. Care and monitoring provided per protocol. Kept cleanm dry and comfortable.
--- NOTE | 2018-08-30 09:15 | NUR ---
rounds seen dr david koenig and speak with pt's stating about going home the weekend. no sob noted.
[2018-08-30] MEDS: FAMOTIDINE PF 20 MG/2 ML VIAL IVP SCH ×2 (09:24→21:03)
[2018-08-30] MEDS: ALVIMOPAN 12 MG CAPSULE PO SCH ×2 (09:24→21:03)
[2018-08-30] MEDS: metroNIDAZOLE 500 mg/NS 100 ML IV SCH ×2 (09:24→22:33)
[2018-08-30] MEDS: ATORVASTATIN 20 MG TABLET PO SCH (09:24)
[2018-08-30] MEDS: METOPROLOL SUCCINATE 25 MG TAB.SR.24H (TOPROL XL) PO SCH (09:25)
[2018-08-30] MEDS: CEFEPIME 1 GM in D5W 50 ML IV SCH ×2 (09:28→21:03)
[2018-08-30] MEDS: ENOXAPARIN SODIUM 30 MG/0.3 ML SYRINGE SUBCUT SCH (09:32)
--- NOTE | 2018-08-30 11:36 | NUR ---
rounds asleep at thisi time. call light within reached. no sob noted.
[2018-08-30 14:15] VITALS: BP_SYST 163
--- NOTE | 2018-08-30 16:00 | NUR ---
rounds ambulated with sesar on the hallway and wilman well with a walker. denies pain. call light within reached.
[2018-08-30 16:59] VITALS: BP_SYST 141
--- NOTE | 2018-08-30 19:00 | NUR ---
closing notes pt ortiz was dc/d and will be observed for voiding. no sob noted. denies pain at this time/
--- NOTE | 2018-08-30 19:20 | NUR ---
initial notes: pt is on bed alert, awake, oriented x 4. no complain of pain. not distress. stable. ivf infusing to right wrist gauge 22- intact and patent, no sing of infiltration. pt has dressing to abdomen-clean dry and intact, support by abdominal binder. with jack drain- clear red fluid o n the drain. explained to pt plan of care for tonight, instructed how to use call light, call for assistance, instructed to use I.S. explained safety. pt verbalized and demonstrate understanding. needs attended, call light in reach. low bed position and lock, bed alarm on. will follow-up.
[2018-08-30 20:57] VITALS: BP_SYST 160
[2018-08-30] MEDS: ONDANSETRON HCL 4 MG/2 ML VIAL IVP PRN (21:16)
--- NOTE | 2018-08-30 22:00 | NUR ---
pt is awake, alert. watching tv. no pain. no distress. stable. needs attended. call light in reach. side rails up. low bed position. will follow-up.
[2018-08-30 22:46] VITALS: BP_SYST 160
--- NOTE | 2018-08-30 22:52 | NUR ---
PAGED PAGED DOCTOR AAKASH WHO IS [employer] ANALYST COUNT [facility]
--- NOTE | 2018-08-31 | NUR ---
pt complain that his iv site is hurting him. pt agree to have new iv site. explain the procedure. start new angiocath to left fore arm gauge 22- good blood return. done aseptically. pt tolerate well. stable. needs attended. call light in reach. will folow-up.
[2018-08-31 01:39] VITALS: BP_SYST 144
--- NOTE | 2018-08-31 02:00 | NUR ---
sleeping, comfortable. no sob, no distress. stable. ivf infusing well. needs attended. call light in reach. side rails up x 3. will follow-up.
--- NOTE | 2018-08-31 02:24 | NUR ---
spoke to dr. jai brooks md for prn medication for sbp above 160, order clonidine 0.1mg po [id number] for sbp>160.
[2018-08-31] MEDS ORDERED: cloNIDine HCL 0.1 MG TABLET PO PRN (02:30)
--- NOTE | 2018-08-31 04:06 | NUR ---
notes: sleeping, comfortable. no sob, no distress. stable. ivf infusing well. needs attended. call light in reach. side rails up x 3. will follow-up.
--- NOTE | 2018-08-31 06:00 | NUR ---
notes: sleeping, comfortable. no pain, not distress. stable. call light in reach. will follow-up.
[2018-08-31] MEDS: LEVOTHYROXINE SODIUM 0.05 MG TABLET PO SCH (06:09)
[2018-08-31] MEDS: D5/0.45 NS 1,000 ML IV SCH ×2 (06:15→21:58)
--- NOTE | 2018-08-31 06:59 | NUR ---
closing: pt wakes up and took his am medication. stable. no pain. ivf infusing well. needs attended the whole shift. call light in reach. bed alarm on. will give bedside report to am rn.
--- NOTE | 2018-08-31 07:15 | NUR ---
received report at the bedside. patient aaox 4. lungs bilaterally clear.
[2018-08-31 08:10] VITALS: BP_SYST 162
--- NOTE | 2018-08-31 08:40 | NUR ---
walk with pt to the hallway. no problem noted. tolerating well.
[2018-08-31] MEDS: ENOXAPARIN SODIUM 30 MG/0.3 ML SYRINGE SUBCUT SCH (08:58)
[2018-08-31] MEDS: CEFEPIME 1 GM in D5W 50 ML IV SCH ×2 (08:59→21:57)
[2018-08-31] MEDS: ATORVASTATIN 20 MG TABLET PO SCH (09:00)
[2018-08-31] MEDS: FAMOTIDINE PF 20 MG/2 ML VIAL IVP SCH ×2 (09:00→21:57)
[2018-08-31] MEDS: METOPROLOL SUCCINATE 25 MG TAB.SR.24H (TOPROL XL) PO SCH (09:00)
[2018-08-31] MEDS: ALVIMOPAN 12 MG CAPSULE PO SCH ×2 (09:00→21:57)
[2018-08-31] MEDS: metroNIDAZOLE 500 mg/NS 100 ML IV SCH ×2 (09:06→21:56)
--- NOTE | 2018-08-31 09:07 | NUR ---
dr koenig came and evaluate the patient. patient sitting on the chair. due medication given as this time.
--- NOTE | 2018-08-31 09:08 | NUR ---
tano segal hanged at this time.
--- NOTE | 2018-08-31 11:00 | NUR ---
micheal in the hallway with x 2.
[2018-08-31 12:35] VITALS: BP_SYST 152
--- NOTE | 2018-08-31 13:14 | NUR ---
GI Tolerating full liquid diet , passing gas , abdominal dressing dry/clean with abdominal binder , jack emptied light red color 80 ml , needs attended , safety/fall precaution instructed verbalized understanding.
--- NOTE | 2018-08-31 13:39 | NUR ---
endorsed to Jazzmine RIDER
--- NOTE | 2018-08-31 14:00 | NUR ---
Rounds Patient nausea is better after Reglan IV push was given , tolerating clear liquid now will monitor. Addendum: 08/31/18 at 1402 by Jazzmine Chau RN WRONG CHARTING NOT INTENDED FOR THIS PATIENT
--- NOTE | 2018-08-31 15:03 | NUR ---
SNF Availability: (Patient prefers to go to [facility] and was accepted, spoke with Linda at Admission.) [facility] - Room 108A (Must confirm bed assignment with weekend admission personnel Makenna.) [address] [place] [address] (Nurse to call for report) [facility] ambulance ON WILL CALL (Nurse to call for sweet pickle maker time) Mica Harvey, HCP Rig Operator [phone]
[2018-08-31 16:44] VITALS: BP_SYST 147
--- NOTE | 2018-08-31 16:50 | NUR ---
GI With large bowel movement soft stool . no abdominal cramping, perineal care given, tolerating po well kept saline lock, kept sitting in the chair for dinner, needs attended., fall safety/precaution initiated verbalized understanding.
[2018-08-31 19:50] VITALS: BP_SYST 134
--- NOTE | 2018-08-31 19:50 | NUR ---
INITIAL NOTE AT INITIAL ASSESSMENT, PATIENT IS RESTING IN BED, STABLE, NO SIGNS OF RESPIRATORY DISTRESS. PATIENT VERBALIZES NO PAIN. PATIENT SUCCESSFULLY DEMONSTRATES CORRECT USAGE OF CALL LIGHT. BED IS LOCKED, ALARMED, AND AT THE LOWEST LEVEL. FALL, SAFETY, AND RESPIRATORY PRECAUTIONS WILL BE TAKEN THROUGHOUT THE SHIFT. STRICT INTAKE AND OUTPUT WILL BE DOCUMENTED DURING THE SHIFT.
--- NOTE | 2018-08-31 21:50 | NUR ---
NOTE SCHEDULED NIGHT TIME MEDICATIONS GIVEN AT THIS TIME, PATIENT IS SEEN WITH STEADY GAIT WALKING TO THE RESTROOM WITHOUT ASSISTANCE NECESSARY AT THIS TIME. HE IS REPOSITIONED BACK INTO BED FOR COMFORT, STABLE, NO SIGNS OF RESPIRATORY DISTRESS. CALL LIGHT WITHIN REACH. BED IS LOCKED, ALARMED, AND AT THE LOWEST LEVEL.
--- NOTE | 2018-08-31 22:30 | NUR ---
WOUND CARE NOTE PATIENT IS REQUESTING NOT TO HAVE WOUND CARE PERFORMED UNTIL THE SURGEON SEES HIM IN THE DAYTIME, AT THIS TIME, HIS DRESSING IS CLEAN, DRY, AND INTACT, NO DRAINAGE NOTED. WILL MONITOR FOR SOILAGE OR DISLODGEMENT.
--- NOTE | 2018-08-31 23:50 | NUR ---
INCENTIVE SPIROMETER TEACHING NOTE PATIENT SUCCESSFULLY DEMONSTRATES CORRECT USAGE OF INCENTIVE SPIROMETER. AT THIS TIME, HE IS AVERAGING 1000 ML WITHOUT PAIN DURING USAGE. PATIENT VERBALIZES KNOWLEDGE TO "PRACTICE 10 TIMES AN HOUR". HIS OXYGEN SATURATION IS AT A STABLE 98% ON ROOM AIR. WILL CONTINUE TO ENCOURAGE USAGE OF INCENTIVE SPIROMETER THROUGHOUT THE SHIFT.
[2018-09-01 00:42] VITALS: BP_SYST 138
--- NOTE | 2018-09-01 01:50 | NUR ---
NOTE PATIENT IS SITTING IN A CHAIR NEXT TO HIS BED, STABLE, NO SIGNS OF RESPIRATORY DISTRESS. CALL LIGHT WITHIN REACH. BED IS LOCKED, AND AT THE LOWEST LEVEL.
[2018-09-01] MEDS: D5/0.45 NS 1,000 ML IV SCH (03:26)
--- NOTE | 2018-09-01 03:50 | NUR ---
NOTE PATIENT IS SLEEPING, STABLE, NO SIGNS OF RESPIRATORY DISTRESS. CALL LIGHT WITHIN REACH. BED IS LOCKED, ALARMED, AND AT THE LOWEST LEVEL.
[2018-09-01] MEDS: ONDANSETRON HCL 4 MG/2 ML VIAL IVP PRN (05:29)
--- NOTE | 2018-09-01 05:45 | NUR ---
NOTE PATIENT IS RESTING IN BED, STABLE, NO SIGNS OF RESPIRATORY DISTRESS. CALL LIGHT WITHIN REACH. BED IS LOCKED, ALARMED, AND AT THE LOWEST LEVEL.
--- NOTE | 2018-09-01 06:05 | NUR ---
CLOSING NOTE PATIENT NO PAIN THROUGHOUT THE NIGHT. AT THIS TIME, HE IS RESTING IN BED, STABLE, NO SIGNS OF RESPIRATORY DISTRESS. CALL LIGHT WITHIN REACH. BED IS LOCKED, ALARMED, AND AT THE LOWEST LEVEL. FALL, SAFETY, AND RESPIRATORY PRECAUTIONS HAVE BEEN TAKEN THROUGHOUT THE SHIFT. STRICT INTAKE AND OUTPUT HAS BEEN DOCUMENTED THROUGHOUT THE SHIFT. WILL CONTINUE TO MONITOR UNTIL SHIFT REPORT IS GIVEN AT BEDSIDE TO AM NURSE.
[2018-09-01] MEDS: LEVOTHYROXINE SODIUM 0.05 MG TABLET PO SCH (06:33)
--- NOTE | 2018-09-01 07:30 | NUR ---
OPENING NOTE: RECEIVED REPORT FROM NIGHT NURSE. PATIENT IS RESTING COMFORTABLY IN BED. NO S/S OF DISTRESS OR SOB. PATIENT IS ALERT AND ORIENTED. LAYING IN BED AT THE MOMENT. NO COMPLAINTS OF PAIN. IV PATENT AND INFUSING. CALL LIGHT IN REACH, BED IN LOWEST POSITION, AND WILL CONTINUE TO MONITOR.
[2018-09-01 08:10] VITALS: BP_SYST 153
[2018-09-01] MEDS: ENOXAPARIN SODIUM 30 MG/0.3 ML SYRINGE SUBCUT SCH (08:36)
[2018-09-01] MEDS: ALVIMOPAN 12 MG CAPSULE PO SCH (08:37)
[2018-09-01] MEDS: CEFEPIME 1 GM in D5W 50 ML IV SCH (08:37)
[2018-09-01] MEDS: ATORVASTATIN 20 MG TABLET PO SCH (08:37)
[2018-09-01] MEDS: FAMOTIDINE PF 20 MG/2 ML VIAL IVP SCH (08:37)
[2018-09-01] MEDS: METOPROLOL SUCCINATE 25 MG TAB.SR.24H (TOPROL XL) PO SCH (08:38)
[2018-09-01] MEDS: metroNIDAZOLE 500 mg/NS 100 ML IV SCH (09:20)
--- NOTE | 2018-09-01 12:00 | NUR ---
RN ROUNDS PATIENT IS RESTING COMFORTABLY IN BED. NO S/S OF DISTRESS OR SOB. PATIENT IS ALERT AND ORIENTED. NO NEEDS AT THIS TIME. CALL LIGHT IN REACH, BED IN LOWEST POSITION, AND WILL CONTINUE TO MONITOR.
[2018-09-01 12:37] VITALS: BP_SYST 159
--- NOTE | 2018-09-01 13:00 | NUR ---
MIRANDA drain Educated patient on MIRANDA drain emptying. Patient able to return proper demonstration on steps for emptying.
--- NOTE | 2018-09-01 14:00 | NUR ---
Dr. Mota spoke with Dr. Mota and he stated that patient cannot go on PO Levaquin because of resistance, must have IV Rocephin and can go through the infusion center.
--- NOTE | 2018-09-01 14:29 | NUR ---
Dietitian Recommendations * Recommend continuing regular diet LP, RD Please refer to Nutrition Assessment for details. Addendum: 09/01/18 at [address] Amended: Links added.
--- NOTE | 2018-09-01 16:00 | NUR ---
infusion center coordinating with JAMES Linn director case management ([phone]) on getting auth for infusion center.
[2018-09-01 16:22] VITALS: BP_SYST 157
[2018-09-01 16:33] VITALS: BP_SYST 155
--- NOTE | 2018-09-01 17:00 | NUR ---
Surgical incision education at bedside. Educated patient and on incision care instructions Dr. Wells ordered. Cleaning with hydrogen peroxide and covering with abdominal pad, secured with tape. Patient and verbalized understanding. No questions or concerns. Patient independent with MIRANDA drain.
--- NOTE | 2018-09-01 17:45 | NUR ---
D/C Patient Patient given medication reconciliation form and D/C instructions. Exit Care provided. Patient verbalized understanding. MD discussed with patient the results and treatment provided. Ambulatory with steady gait for discharge to home. Patient in stable condition, ID band removed. IV catheter in place. Patient will be going to Dr. Mota's infusion center tomorrow at 1030 to start 7 day treatment. Patient educated on pain management. All belongings sent with patient.
== END 2018-09-01 17:45 | disposition home or self-care (01) | DRG 907 ==
LOC: SMU 05:55 → STU 13:08 → SMU 08-29 23:13
PROVIDERS: ADMIT Colon & Rectal Surgery; ATTEND Colon & Rectal Surgery
PROC: 0DT80ZZ Resection of Small Intestine, Open Approach (ICD-10-PCS; 2018-08-27)
PROC: 0DNP0ZZ Release Rectum, Open Approach (ICD-10-PCS; 2018-08-27)
PROC: 0W9F0ZZ Drainage of Abdominal Wall, Open Approach (ICD-10-PCS; 2018-08-27)
PROC: 0DBL0ZZ Excision of Transverse Colon, Open Approach (ICD-10-PCS; 2018-08-27)
PROC: 0WPF0JZ Removal of Synthetic Substitute from Abdominal Wall, Open Approach (ICD-10-PCS; 2018-08-27)
PROC: 30233N1 Transfusion of Nonautologous Red Blood Cells into Peripheral Vein, Percutaneous Approach (ICD-10-PCS; 2018-08-27)
PROC: 0DN80ZZ Release Small Intestine, Open Approach (ICD-10-PCS; principal; 2018-08-27 07:30)
DX: T85.79XA Infection and inflammatory reaction due to other internal prosthetic devices, implants and grafts, initial encounter (principal); K65.1 Peritoneal abscess; K56.7 Ileus, unspecified; K66.0 Peritoneal adhesions (postprocedural) (postinfection); I10 Essential (primary) hypertension; I25.10 Atherosclerotic heart disease of native coronary artery without angina pectoris; Y83.2 Surgical operation with anastomosis, bypass or graft as the cause of abnormal reaction of the patient, or of later complication, without mention of misadventure at the time of the procedure; B96.20 Unspecified Escherichia coli [E. coli] as the cause of diseases classified elsewhere; Z95.5 Presence of coronary angioplasty implant and graft; Z79.899 Other long term (current) drug therapy; Y92.89 Other specified places as the place of occurrence of the external cause; Z93.3 Colostomy status
CPT/HCPCS: 36415; 80048; 80053; 85018-TC; 85025; 86886; 86900; 86901; 86920; 87070; 87070-TC; 87075-TC; 87081; 87186-TC; 88304; 88307; 94010; 97110-GP; 97116-GP; 97530-GP; G0378; J0692; J0694; J0696; J1170; J1650; J2250; J2405; J2704; J3010; J3490; J7042; J7060; J7120; P9021